=== PATIENT | female | born 1935 | race Asian ===

== ENCOUNTER → 2018-02-04 | Outpatient (CLI) | payer BC | END | disposition home or self-care (01) | LOC: CFH 10:31 | PROVIDERS: ATTEND Family Medicine | DX: M16.0 Bilateral primary osteoarthritis of hip (principal) | CPT/HCPCS: 73523 ==

== ENCOUNTER 2018-12-21 14:37 | Observation (INO) | payer MEDICARE, BC ==
[~2018-12-21] VITALS: Ht 160 cm; Wt 56.5 kg
--- NOTE | 2018-12-21 15:27 | NUR ---
PT TO ROOM FROM LOBBY
--- NOTE | 2018-12-21 15:29 | NUR ---
PT TO ROOM FROM LOBBY
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
[2018-12-21] MEDS ORDERED: MORPHINE SULFATE 4 MG/ML, 1ML ONE ×2 (15:51→19:32)
[2018-12-21] MEDS ORDERED: METHOCARBAMOL 750 MG TABLET ONE (15:51)
[2018-12-21] MEDS ORDERED: DILT180C59 MT (15:54)
[2018-12-21] MEDS ORDERED: RISEDRONATE (15:55)
[2018-12-21] MEDS ORDERED: ASPI81TA45 PO (15:55)
[2018-12-21] MEDS ORDERED: OMEP40CA6 PO (15:56)
[2018-12-21] MEDS ORDERED: MUTIVITAMIN (15:57)
[2018-12-21] MEDS ORDERED: [UNRECOGNIZED DRUG - OTHER] (15:57)
[2018-12-21] MEDS ORDERED: DIPH25CA61 PO (15:57)
[2018-12-21] MEDS ORDERED: METHOCARBAMOL 750 MG TABLET PO ONE (16:00)
[2018-12-21] MEDS ORDERED: MORPHINE SULFATE 4 MG/ML, 1ML IVPush PRN (16:00)
--- NOTE | 2018-12-21 16:32 | NUR ---
PT STATES THAT HER PAIN IS GONE. PT IS RESTING COMFORTABLE. MEDICATED PER MD. VS STABLE.
--- NOTE | 2018-12-21 17:55 | NUR ---
PT HAS CO OF NAUSEA. AWARE. ZOFRAN GIVEN PER ORDER
[2018-12-21] MEDS ORDERED: ONDANSETRON 2MG/ML, 2ML IVPush ONE (18:00)
--- NOTE | 2018-12-21 18:14 | NUR ---
Patient/Caregiver given discharge instructions and they have confirmed that they understand the instructions. Patient ambulatory with steady gait.
--- NOTE | 2018-12-21 18:16 | NUR ---
DPatient/Caregiver given discharge instructions and they have confirmed that they understand the instructions. Patient ambulatory with steady gait.
--- NOTE | 2018-12-21 18:26 | NUR ---
PT HAD INCREASE NAUSEA WITH VOMITING AT DISCHARGE DESK. BACK TO ROOM, ORDERS RECEIVED
[2018-12-21] MEDS ORDERED: PROMETHAZINE 25 MG/ML, 1ML ONE (18:28)
[2018-12-21] MEDS ORDERED: PROMETHAZINE 25 MG/ML, 1ML IM ONE (18:30)
[2018-12-21 18:57] LABS: ALANINE AMINOTRANSFERASE 20 U/L (12-78); ALBUMIN 3.7 g/dL (3.4-5.0); ANION GAP 9 mmol/L (5-15); CALCIUM 8.5 mg/dL (8.5-10.1); CHLORIDE 104 mmol/L (98-107)
[2018-12-21 19:00] LABS: ALKALINE PHOSPHATASE 75 U/L (45-117); BASOPHILS # (AUTO) 0.03 x10^3/uL (0-0.1); BASOPHILS % (AUTO) 1 % (0-1); BILIRUBIN,TOTAL 0.5 mg/dL (0.2-1.0); CREATININE 1.11 mg/dL (0.55-1.02); EOSINOPHILS % (AUTO) 0 % (1-7); LYMPHOCYTES # (AUTO) 1.42 x10^3/uL (1-3.4); LYMPHOCYTES % (AUTO) 20 % (22-44); MD NO; MEAN CORPUSCULAR HEMOGLOBIN 31.9 pg (27.0-34.8); MEAN CORPUSCULAR VOLUME 96.8 fL (80-100); MONOCYTES # (AUTO) 0.17 x10^3/uL (0.2-0.8); MONOCYTES % (AUTO) 2 % (2-9); NEUTROPHILS # (AUTO) 5.67 x10^3/uL (1.8-6.8); NEUTROPHILS % (AUTO) 78 % (42-75); PLATELET COUNT 246 x10^3/uL (130-400); RED BLOOD COUNT 4.33 x10^6/uL (3.82-5.3); RED CELL DISTRIBUTION WIDTH 14.4 % (9.6-15.2)
--- NOTE | 2018-12-21 19:17 | NUR ---
ASSUMED CARE OF PATIENT. REPORT GIVEN FROM EMILIANA. DR PATRICIO HAS UPDATED PATIENT.
--- NOTE | 2018-12-21 19:29 | NUR ---
DR PATRICIO HAS UPDATED PATIENT
[2018-12-21 19:37] LABS: CULTURE INDICATED? YES; MICROSCOPIC INDICATED
[2018-12-21] MEDS ORDERED: FENTANYL PF 100 MCG/2ML IVPush PRN (20:00)
--- NOTE | 2018-12-21 20:01 | NUR ---
Pt went to CT.
[2018-12-21] MEDS ORDERED: FENTANYL PF 100 MCG/2ML ONE (20:07)
--- NOTE | 2018-12-21 20:12 | NUR ---
PT GIVEN PAIN MEDS FOR 8/10 RIGHT SIDED GROIN/HIP PAIN. PT NOW RESTINGIN ROOM. VS STABLE. FAMILY AT BEDSIDE. WILL CONTINUE TO MONITOR.
[2018-12-21 21:52] VITALS: BP 133/70
[2018-12-21] MEDS ORDERED: ENALAPRILAT 1.25 MG/ML, 2ML IVPush PRN (23:30)
[2018-12-21] MEDS ORDERED: LIDODERM 5% PATCH TD PRN (23:30)
[2018-12-21] MEDS ORDERED: DOCUSATE 100 MG CAPSULE PO PRN (23:30)
[2018-12-21] MEDS ORDERED: TEMAZEPAM 15 MG CAPSULE PO PRN (23:30)
[2018-12-21] MEDS: ENOXAPARIN 40 MG/0.4 ML SQ SCH (23:45)
[2018-12-21] MEDS: METHOCARBAMOL 500 MG TABLET PO PRN (23:45)
[2018-12-21] MEDS: ONDANSETRON 2MG/ML, 2ML IVPush PRN (23:52)
[2018-12-22 02:27] VITALS: BP 127/71
[2018-12-22] MEDS: OXYcodone/APAP 5/325MG TABLET PO PRN ×3 (02:32→21:10)
[2018-12-22 04:41] LABS: BASOPHILS # (AUTO) 0.03 x10^3/uL (0-0.1); BASOPHILS % (AUTO) 0 % (0-1); EOSINOPHILS # (AUTO) 0.09 x10^3/uL (0-0.4); EOSINOPHILS % (AUTO) 1 % (1-7); LYMPHOCYTES # (AUTO) 1.61 x10^3/uL (1-3.4); LYMPHOCYTES % (AUTO) 20 % (22-44); MD NO; MEAN CORPUSCULAR HGB CONC 33.3 g/dL (32.4-35.8); MEAN CORPUSCULAR VOLUME 96.3 fL (80-100); MEAN PLATELET VOLUME 7.8 fL (7.4-10.4); MONOCYTES # (AUTO) 0.41 x10^3/uL (0.2-0.8); MONOCYTES % (AUTO) 5 % (2-9); NEUTROPHILS # (AUTO) 5.94 x10^3/uL (1.8-6.8); NEUTROPHILS % (AUTO) 74 % (42-75); PLATELET COUNT 217 x10^3/uL (130-400); RED BLOOD COUNT 4.03 x10^6/uL (3.82-5.3); RED CELL DISTRIBUTION WIDTH 13.8 % (9.6-15.2)
[2018-12-22 04:47] LABS: ANION GAP 7 mmol/L (5-15); CALCIUM 8.3 mg/dL (8.5-10.1); CHLORIDE 106 mmol/L (98-107)
[2018-12-22 07:46] VITALS: BP 122/67
[2018-12-22] MEDS: DIPHENHYDRAMINE 25 MG CAPSULE PO SCH (08:04)
[2018-12-22] MEDS: OMEPRAZOLE 20 MG CAPSULE.DR PO SCH (08:04)
[2018-12-22] MEDS: DILTIAZEM CD 180 MG CAP.ER.24H PO SCH (08:04)
[2018-12-22] MEDS: ASPIRIN 81 MG TABLET EC PO SCH (08:05)
[2018-12-22] MEDS: ACETAMINOPHEN 325 MG TABLET PO PRN ×2 (11:57→16:11)
[2018-12-22 12:25] VITALS: BP 127/71
[2018-12-22 19:30] VITALS: BP 119/62
[2018-12-22] MEDS: ENOXAPARIN 40 MG/0.4 ML SQ SCH (20:05)
[2018-12-23 02:12] VITALS: BP 110/63
[2018-12-23] MEDS: METHOCARBAMOL 500 MG TABLET PO PRN ×2 (04:02→12:28)
[2018-12-23 04:21] LABS: BASOPHILS # (AUTO) 0.05 x10^3/uL (0-0.1); BASOPHILS % (AUTO) 1 % (0-1); EOSINOPHILS # (AUTO) 0.11 x10^3/uL (0-0.4); EOSINOPHILS % (AUTO) 2 % (1-7); LYMPHOCYTES # (AUTO) 2.08 x10^3/uL (1-3.4); LYMPHOCYTES % (AUTO) 36 % (22-44); MD NO; MEAN CORPUSCULAR HEMOGLOBIN 32.2 pg (27.0-34.8); MEAN CORPUSCULAR HGB CONC 33.2 g/dL (32.4-35.8); MEAN PLATELET VOLUME 8.3 fL (7.4-10.4); MONOCYTES # (AUTO) 0.43 x10^3/uL (0.2-0.8); MONOCYTES % (AUTO) 7 % (2-9); NEUTROPHILS # (AUTO) 3.16 x10^3/uL (1.8-6.8); NEUTROPHILS % (AUTO) 54 % (42-75); PLATELET COUNT 227 x10^3/uL (130-400); RED BLOOD COUNT 4.09 x10^6/uL (3.82-5.3); RED CELL DISTRIBUTION WIDTH 13.7 % (9.6-15.2)
[2018-12-23 04:32] LABS: ANION GAP 6 mmol/L (5-15); C-REACTIVE PROTEIN, QUANT 0.41 mg/dL (0.02-0.49); CALCIUM 8.2 mg/dL (8.5-10.1); CHLORIDE 107 mmol/L (98-107); CREATININE 1.11 mg/dL (0.55-1.02)
[2018-12-23 08:28] VITALS: BP 120/62
[2018-12-23] MEDS: DIPHENHYDRAMINE 25 MG CAPSULE PO SCH (09:00)
[2018-12-23] MEDS: ASPIRIN 81 MG TABLET EC PO SCH (09:08)
[2018-12-23] MEDS: OMEPRAZOLE 20 MG CAPSULE.DR PO SCH (09:09)
[2018-12-23] MEDS: DILTIAZEM CD 180 MG CAP.ER.24H PO SCH (09:09)
[2018-12-23] MEDS: OXYcodone/APAP 5/325MG TABLET PO PRN ×2 (09:09→17:46)
[2018-12-23] MEDS ORDERED: LORazepam 2 MG/ML, 1ML IVPush ONE (10:30)
[2018-12-23] MEDS ORDERED: GADOBUTROL 7.5 MMOL/7.5 ML PFS ONE (13:50)
[2018-12-23 14:20] VITALS: BP 110/59
[2018-12-23 19:08] VITALS: BP 141/76
[2018-12-23] MEDS: ENOXAPARIN 40 MG/0.4 ML SQ SCH (19:39)
[2018-12-24] MEDS: OXYcodone/APAP 5/325MG TABLET PO PRN ×2 (01:55→11:02)
[2018-12-24 01:57] VITALS: BP 118/64
[2018-12-24 06:03] LABS: BASOPHILS # (AUTO) 0.05 x10^3/uL (0-0.1); BASOPHILS % (AUTO) 1 % (0-1); EOSINOPHILS # (AUTO) 0.12 x10^3/uL (0-0.4); EOSINOPHILS % (AUTO) 2 % (1-7); LYMPHOCYTES # (AUTO) 2.94 x10^3/uL (1-3.4); LYMPHOCYTES % (AUTO) 40 % (22-44); MD NO; MEAN CORPUSCULAR HEMOGLOBIN 31.3 pg (27.0-34.8); MEAN CORPUSCULAR HGB CONC 32.5 g/dL (32.4-35.8); MEAN CORPUSCULAR VOLUME 96.3 fL (80-100); MONOCYTES % (AUTO) 8 % (2-9); NEUTROPHILS # (AUTO) 3.61 x10^3/uL (1.8-6.8); NEUTROPHILS % (AUTO) 49 % (42-75); PLATELET COUNT 224 x10^3/uL (130-400); RED BLOOD COUNT 4.32 x10^6/uL (3.82-5.3); RED CELL DISTRIBUTION WIDTH 13.8 % (9.6-15.2)
[2018-12-24 06:06] LABS: ANION GAP 7 mmol/L (5-15); CALCIUM 8.5 mg/dL (8.5-10.1); CHLORIDE 108 mmol/L (98-107)
[2018-12-24 07:37] VITALS: BP 133/64
[2018-12-24] MEDS: ASPIRIN 81 MG TABLET EC PO SCH (08:38)
[2018-12-24] MEDS: METHOCARBAMOL 500 MG TABLET PO PRN (08:38)
[2018-12-24] MEDS: OMEPRAZOLE 20 MG CAPSULE.DR PO SCH (08:38)
[2018-12-24] MEDS: DILTIAZEM CD 180 MG CAP.ER.24H PO SCH (08:38)
[2018-12-24] MEDS ORDERED: ACET325T26 PO (11:50)
[2018-12-24] MEDS ORDERED: GABA100C PO (11:50)
[2018-12-24] MEDS: ONDANSETRON 2MG/ML, 2ML IVPush PRN (12:58)
== END 2018-12-24 14:20 | disposition home or self-care (01) ==
LOC: ED 18:17 → EDIP 20:44 → UNDOADMOB 20:44 → INTOOBSV 20:44 → EDIP 21:27 → 3NE 21:27 → DCLOUNGE 12-24 14:02
PROVIDERS: ADMIT Internal Medicine; ATTEND Internal Medicine
DX: R10.30 Lower abdominal pain, unspecified (principal); M54.16 Radiculopathy, lumbar region; M62.830 Muscle spasm of back; R11.2 Nausea with vomiting, unspecified; M81.0 Age-related osteoporosis without current pathological fracture; E78.5 Hyperlipidemia, unspecified; I10 Essential (primary) hypertension; Z87.828 Personal history of other (healed) physical injury and trauma
CPT/HCPCS: 36415; 72110; 72158; 72190; 74176; 80048; 80053; 81001; 83690; 85025; 86140; 87086; 96372; 96374; 96375; 96376; 97162; 97166; 99284; A9585; G0378; J1650; J2060; J2270; J2405; J2550; J3010; Q0163

== ENCOUNTER 2019-01-09 08:00 | Outpatient (CLI) | payer BC ==
[~2019-01-09] VITALS: Ht 160 cm; Wt 54.5 kg
[~2019-01-09 08:00] MED LIST: ACET325T26 PO; ASPI81TA45 PO; DILT180C59 MT; DIPH25CA61 PO; GABA100C PO; MUTIVITAMIN; OMEP40CA6 PO; RISEDRONATE; [UNRECOGNIZED DRUG - OTHER]
[2019-01-09] MEDS ORDERED: RISE30TA PO (08:41)
[2019-01-09] MEDS ORDERED: GABA-826 PO (08:41)
[2019-01-09] MEDS ORDERED: HYDR-3237 PO (08:41)
[2019-01-09] MEDS ORDERED: NAPR-685 PO (08:41)
[2019-01-09] MEDS ORDERED: METH500T7 PO (08:41)
[2019-01-09] MEDS ORDERED: MUPI22OI2 TP (08:41)
[2019-01-09] MEDS ORDERED: ONDA4TAB13 SL (08:41)
[2019-01-09] MEDS ORDERED: MULT-516 PO (08:41)
[2019-01-09 09:17] LABS: BASOPHILS # (AUTO) 0.04 x10^3/uL (0-0.1); BASOPHILS % (AUTO) 0 % (0-1); EOSINOPHILS # (AUTO) 0.17 x10^3/uL (0-0.4); EOSINOPHILS % (AUTO) 2 % (1-7); LYMPHOCYTES # (AUTO) 2.94 x10^3/uL (1-3.4); LYMPHOCYTES % (AUTO) 28 % (22-44); MD NO; MEAN CORPUSCULAR HEMOGLOBIN 31.4 pg (27.0-34.8); MEAN CORPUSCULAR HGB CONC 32.7 g/dL (32.4-35.8); MEAN CORPUSCULAR VOLUME 96.3 fL (80-100); MEAN PLATELET VOLUME 7.3 fL (7.4-10.4); MONOCYTES # (AUTO) 0.75 x10^3/uL (0.2-0.8); MONOCYTES % (AUTO) 7 % (2-9); NEUTROPHILS # (AUTO) 6.55 x10^3/uL (1.8-6.8); NEUTROPHILS % (AUTO) 63 % (42-75); PLATELET COUNT 316 x10^3/uL (130-400); RED BLOOD COUNT 4.66 x10^6/uL (3.82-5.3); RED CELL DISTRIBUTION WIDTH 13.8 % (9.6-15.2)
[2019-01-09 09:22] LABS: MICROSCOPIC AUTO
[2019-01-09 09:23] LABS: CULTURE INDICATED? YES
[2019-01-09 09:27] LABS: INTERNATIONAL NORMALIZED RATIO 0.96 (0.93-1.1); PROTHROMBIN TIME 10.1 Seconds (9.6-11.5)
[2019-01-09 10:08] LABS: ALBUMIN 3.8 g/dL (3.4-5.0); ANION GAP 7 mmol/L (5-15); CHLORIDE 105 mmol/L (98-107); CREATININE 1.09 mg/dL (0.55-1.02)
[2019-01-09 10:32] LABS: ALANINE AMINOTRANSFERASE 24 U/L (12-78); ALKALINE PHOSPHATASE 67 U/L (45-117); BILIRUBIN,TOTAL 0.5 mg/dL (0.2-1.0); TOTAL PROTEIN 8.1 g/dL (6.4-8.2)
[2019-01-11] MEDS ORDERED: EPINEPHRINE 1 MG/ML, 1ML ONE (07:04)
[2019-01-11] MEDS ORDERED: LIDOCAINE/PF 0.5% ,50ML ONE (07:04)
[2019-01-11] MEDS ORDERED: TOBRAMYCIN SULFATE 1.2 GM IMP ONE (07:04)
[2019-01-11] MEDS ORDERED: VANCOMYCIN 1,000 MG ONE (07:04)
== END 2019-01-11 23:59 | disposition home or self-care (01) ==
LOC: CLISVCS 08:00 → OUT 01-11 11:09 → EDSTATUS 01-11 13:30 → CLISVCS 01-11 23:59
PROVIDERS: ATTEND Orthopaedic Surgery Orthopaedic Surgery of the Spine
DX: M51.16 Intervertebral disc disorders with radiculopathy, lumbar region (principal); Z53.8 Procedure and treatment not carried out for other reasons; I10 Essential (primary) hypertension; Z79.01 Long term (current) use of anticoagulants; Z79.891 Long term (current) use of opiate analgesic; Z79.899 Other long term (current) drug therapy
CPT/HCPCS: 36415; 71046; 80053; 81001; 85025; 85610; 85730; 87086; 93005; J0171; J2001; J3260; J3370

== ENCOUNTER 2019-01-13 14:58 | Outpatient (CLI) | payer BC | END 2019-01-13 23:59 | disposition home or self-care (01) | LOC: CVU 14:58 | PROVIDERS: ATTEND Orthopaedic Surgery Orthopaedic Surgery of the Spine | DX: I07.1 Rheumatic tricuspid insufficiency (principal); I10 Essential (primary) hypertension; I44.7 Left bundle-branch block, unspecified; I25.2 Old myocardial infarction; Z72.0 Tobacco use | CPT/HCPCS: 93306 ==

== ENCOUNTER 2019-01-17 05:33 | Day surgery (SDC) | payer BC ==
[~2019-01-17] VITALS: Ht 160 cm; Wt 52.0 kg
[~2019-01-17 05:33] MED LIST changes: +GABA-826 PO; +HYDR-3237 PO; +METH500T7 PO; +MULT-516 PO; +MUPI22OI2 TP; +NAPR-685 PO; +ONDA4TAB13 SL; +RISE30TA PO
[2019-01-17 06:04] VITALS: BP 165/82
[2019-01-17] MEDS ORDERED: LACTATED RINGERS 1,000 ML IV SCH (06:07)
[2019-01-17] MEDS ORDERED: GABAPENTIN 300 MG CAPSULE ONE (06:39)
[2019-01-17] MEDS ORDERED: ACETAMINOPHEN 500 MG TABLET ONE (06:39)
[2019-01-17] MEDS ORDERED: FENTANYL PF 250 MCG/5ML ONE (06:43)
[2019-01-17] MEDS ORDERED: PHENYLEPHRINE 10 MG/ML ONE (06:47)
[2019-01-17] MEDS ORDERED: TOBRAMYCIN SULFATE 1.2 GM IMP ONE (06:53)
[2019-01-17] MEDS ORDERED: BUPIVACAINE/PF 0.25% ONE (06:53)
[2019-01-17] MEDS ORDERED: EPINEPHRINE 1 MG/ML, 1ML ONE ×2 (06:53→08:02)
[2019-01-17] MEDS ORDERED: THROMBIN 5,000 UNIT VIAL TP ONE (06:53)
[2019-01-17] MEDS ORDERED: VANCOMYCIN 1,000 MG ONE (06:53)
[2019-01-17] MEDS ORDERED: LIDOCAINE 1%-EPI 1:100K, 20ML ONE ×2 (06:54→08:01)
[2019-01-17] MEDS ORDERED: ACETAMINOPHEN 500 MG TABLET PO ONE (07:00)
[2019-01-17] MEDS ORDERED: GABAPENTIN 300 MG CAPSULE PO ONE (07:00)
[2019-01-17] MEDS ORDERED: PROMETHAZINE 12.5 MG SUPP PR PRN (08:00)
[2019-01-17] MEDS ORDERED: hydrALAzine 20 MG/ML, 1ML IV PRN (08:00)
[2019-01-17] MEDS ORDERED: FENTANYL PF 100 MCG/2ML IV PRN (08:00)
[2019-01-17] MEDS ORDERED: MORPHINE SULFATE 4 MG/ML, 1ML IVPush PRN (08:00)
[2019-01-17] MEDS ORDERED: ONDANSETRON ODT 8 MG PO PRN (08:00)
[2019-01-17] MEDS ORDERED: MEPERIDINE/PF 25MG/0.5ML IVPush PRN (08:00)
[2019-01-17] MEDS ORDERED: PROMETHAZINE 25 MG SUPP PR PRN (08:00)
[2019-01-17] MEDS ORDERED: LIDOCAINE/PF 1%-EPI 1:200K, 30 ML ONE (08:00)
[2019-01-17] MEDS ORDERED: LABETALOL 5MG/ML, 20ML IV PRN (08:00)
[2019-01-17] MEDS ORDERED: PROMETHAZINE 25 MG/ML, 1ML IV PRN (08:00)
[2019-01-17] MEDS ORDERED: OXYcodone 5 MG/5 ML ORAL.SOL UDC PO PRN (08:00)
[2019-01-17] MEDS ORDERED: PROMETHAZINE 25 MG/ML, 1ML IM PRN ×2 (08:00)
[2019-01-17] MEDS ORDERED: ONDANSETRON 2MG/ML, 2ML IV PRN (08:00)
[2019-01-17] MEDS ORDERED: HYDROmorphone 2 MG/ML, 1ML IVPush PRN (08:00)
[2019-01-17] MEDS ORDERED: LIDOCAINE/PF 0.5% ,50ML ONE (08:02)
[2019-01-17] MEDS ORDERED: GLYCOPYRROLATE 0.2MG/1ML, 5ML ONE (08:05)
[2019-01-17] MEDS ORDERED: ROCURONIUM 10MG/ML,5ML ONE (08:05)
[2019-01-17] MEDS ORDERED: CEFAZOLIN 1,000 MG ONE (08:05)
[2019-01-17] MEDS ORDERED: PROPOFOL 10 MG/ML, 20ML ONE (08:05)
[2019-01-17] MEDS ORDERED: NEOSTIGMINE 1 MG/ML, 10ML ONE (08:05)
[2019-01-17] MEDS ORDERED: ONDANSETRON 2MG/ML, 2ML ONE (08:05)
[2019-01-17] MEDS ORDERED: DEXAMETHASONE 4 MG/ML, 1ML ONE (08:05)
[2019-01-17] MEDS ORDERED: OXYcodone 5 MG/5 ML ORAL.SOL UDC ONE (09:43)
== END 2019-01-17 16:20 | disposition home or self-care (01) ==
LOC: OUT 05:33
PROVIDERS: ATTEND Orthopaedic Surgery Orthopaedic Surgery of the Spine
DX: M51.16 Intervertebral disc disorders with radiculopathy, lumbar region (principal); I10 Essential (primary) hypertension; Z79.82 Long term (current) use of aspirin; Z79.891 Long term (current) use of opiate analgesic; Z79.899 Other long term (current) drug therapy
CPT/HCPCS: 63030; 72100; J0171; J0690; J1100; J2001; J2370; J2405; J2704; J2710; J3010; J3370; J3490; J7120; J3260

== ENCOUNTER → 2020-06-03 | Outpatient (CLI) | payer BC ==
[~2020-06-03] MED LIST changes: +OMEP40CA42 PO; -OMEP40CA6 PO
== END | disposition home or self-care (01) ==
LOC: CFH 09:34
PROVIDERS: ATTEND Nurse Practitioner Family
DX: M81.0 Age-related osteoporosis without current pathological fracture (principal)
CPT/HCPCS: 77080